=== PATIENT | male | born 1955 | race Caucasian/White ===

== ENCOUNTER 2021-02-05 03:42 | Emergency (ER) | payer MEDICARE, BC ==
[2021-02-05 04:12] VITALS: BP 161/87; PULSE 95
--- NOTE | 2021-02-05 04:20 | EDM.PDOC ---
ED HPI GENERAL MEDICAL PROBLEM - General Chief Complaint: Neurological Problem Stated Complaint: DISORIENTED Time Seen by Provider: 02/05/21 03:58 Source of Information: Reports: Patient, Family History Limitations: Reports: No Limitations - History of Present Illness INITIAL COMMENTS - FREE TEXT/NARRATIVE: Royce is a 65-year-old male from [place], [place] who was camping out at [facility] on [facility] presenting to the ED for evaluation of altered mental status with some confusion, fever, chills, rigors, urinary urgency, frequency, and incontinence, slurring of speech and staggering gait. Patient symptoms started yesterday evening around 9:00. The patient has type 2 diabetes with peripheral neuropathy that is pretty severe so he usually takes Ambien as well as his other medications to be able to sleep. He started having urinary frequency, urgency and incontinence. This was accompanied by the onset of pretty significant chills and rigors. The states that he is ambulating like he is drunk. The patient is slurring his words. He denies any alcohol intake. He has not had any trauma. He denies any new onset of numbness, tingling, or weakness. While in triage to the ED, the patient is flagging for possible sepsis. - Related Data Allergies Allergy/AdvReac Type Severity Reaction Status Date / Time iodine Allergy Hives Verified 02/05/21 03:59 Home Meds: Home Meds Aspirin [Luis Chewable] 81 mg PO DAILY 01/23/15 [History] Furosemide 20 tab PO DAILY 01/23/15 [History] Gabapentin 600 tab PO BID 01/23/15 [History] Insulin Aspart [NovoLOG] 55 unit SUBCUT QID 01/23/15 [History] Lisinopril 2.5 tab PO DAILY 01/23/15 [History] Metoprolol Tartrate [Lopressor] 50 tab PO DAILY 01/23/15 [History] Nitroglycerin [Nitrostat] 0.4 tab SL QID PRN 01/23/15 [History] Omeprazole 20 tab PO DAILY 01/23/15 [History] metFORMIN [Glucophage] 1,000 mg PO BIDMEALS 01/23/15 [History] Baclofen 20 mg PO BID 02/05/21 [History] Clopidogrel [Plavix] 75 mg PO DAILY 02/05/21 [History] Insulin Degludec [Tresiba] 55 units PO BEDTIME 02/05/21 [History] Isosorbide Mononitrate [Isosorbide Mononitrate ER] 120 mg PO DAILY 02/05/21 [History] Past Medical History Other HEENT History: Epistaxis on 01-19-2015, reoccured last night at 2300 Other Genitourinary History: Kidney cancer Social & Family History - Tobacco Use Tobacco Use Status *Q: Never Tobacco User - Recreational Drug Use Recreational Drug Use: No ED ROS GENERAL - Review of Systems Review Of Systems: See Below Constitutional: Reports: Fever, Chills, Malaise, Diaphoresis HEENT: Reports: No Symptoms Respiratory: Reports: No Symptoms Cardiovascular: Reports: No Symptoms Endocrine: Reports: No Symptoms GI/Abdominal: Reports: No Symptoms : Reports: Frequency, Incontinence, Urgency Musculoskeletal: Reports: Leg Pain (Chronic bilateral lower extremity peripheral neuropathy of diabetes) Skin: Reports: No Symptoms Neurological: Reports: Headache Psychiatric: Reports: No Symptoms Hematologic/Lymphatic: Reports: No Symptoms Immunologic: Reports: No Symptoms - Physical Exam Exam: See Below Exam Limited By: No Limitations General Appearance: Alert, Anxious, Mild Distress Eye Exam: Bilateral Eye: EOMI, PERRL Throat/Mouth: Normal Inspection, Normal Lips, Normal Oropharynx, Normal Voice, No Airway Compromise Head Exam: Atraumatic, Normocephalic Neck: Normal Inspection, Supple, Non-Tender, Full Range of Motion. No: Carotid Bruit, Lymphadenopathy (R), Lymphadenopathy (L) Respiratory/Chest: No Respiratory Distress, Lungs Clear, Normal Breath Sounds Cardiovascular: Normal Peripheral Pulses, Regular Rate, Rhythm, No Murmur GI/Abdominal: Normal Bowel Sounds, Soft, Non-Tender Neuro Exam (Abbreviated): Alert, Oriented, CN II-XII Intact, Normal Cognition, No Motor/Sensory Deficits, Other (Mild dysarthria with slurring of the words. Also a mild tremor) Back Exam: CVA Tenderness (L) Extremities: Normal Inspection, No Pedal Edema Psychiatric: Normal Affect, Normal Mood Skin Exam: Warm, Dry, Intact, Normal Color, No Rash Course - Vital Signs Last Recorded V/S: Last Vital Signs Temp 36.7 C 02/05/21 03:58 Pulse 95 02/05/21 03:58 Resp 16 02/05/21 03:58 BP 161/87 H 02/05/21 03:58 Pulse Ox 94 L 02/05/21 03:58 - Orders/Labs/Meds Orders: Active Orders 24 hr Category Date Time Status Head wo Cont [CT] Stat Exams 02/05/21 03:58 Taken cephALEXin [Keflex] Med 02/05/21 05:46 Once 500 mg PO ONETIME ONE Labs: Laboratory Tests 02/05/21 02/05/21 02/05/21 Range/Units 04:10 04:10 04:10 WBC 17.4 H (4.5-11.0) K/uL RBC 5.21 (4.30-5.90) M/uL Hgb 15.3 H (12.0-15.0) g/dL Hct 44.5 (40.0-54.0) % MCV 85 (80-98) fL MCH 29 (27-31) pg MCHC 34 (32-36) % Plt Count 170 (150-400) K/uL Neut % (Auto) 80.1 H (36-66) % Lymph % (Auto) 9.2 L (24-44) % Bracken % (Auto) 10.0 H (2-6) % Eos % (Auto) 0.5 L (2-4) % Baso % (Auto) 0.2 (0-1) % Sodium 136 L (140-148) mmol/L Potassium 4.1 (3.6-5.2) mmol/L Chloride 99 L (100-108) mmol/L Carbon Dioxide 28 (21-32) mmol/L Anion Gap 13.1 (5.0-14.0) mmol/L BUN 13 (7-18) mg/dL Creatinine 1.3 (0.8-1.3) mg/dL Est Cr Clr Drug Dosing 62.32 mL/min Estimated GFR (MDRD) 55 L (>60) Glucose 199 H (74-106) mg/dL Lactic Acid 1.1 (0.4-2.0) mmol/L Calcium 8.7 (8.5-10.1) mg/dL Total Bilirubin 1.1 H (0.2-1.0) mg/dL AST 25 (15-37) U/L ALT 34 (12-78) U/L Alkaline Phosphatase 72 (46-116) U/L Total Protein 7.1 (6.4-8.2) g/dL Albumin 3.6 (3.4-5.0) g/dL Globulin 3.5 (2.3-3.5) g/dL Albumin/Globulin Ratio 1.0 L (1.2-2.2) Urine Color (YELLOW) Urine Appearance (CLEAR) Urine pH (5.0-8.0) Ur Specific [place] (1.008-1.030) Urine Protein (NEGATIVE) mg/dL Urine Glucose (UA) (NEGATIVE) mg/dL Urine Ketones (NEGATIVE) mg/dL Urine Occult Blood (NEGATIVE) Urine Nitrite (NEGATIVE) Urine Bilirubin (NEGATIVE) Urine Urobilinogen (0.2-1.0) EU/dL Ur Leukocyte Esterase (NEGATIVE) Urine RBC (0-5) Urine WBC (0-5) Ur Epithelial Cells Amorphous Sediment Urine Bacteria Urine Mucus Urine Opiates Screen (NEGATIVE) Ur Oxycodone Screen (NEGATIVE) Urine Methadone Screen (NEGATIVE) Ur Propoxyphene Screen (NEGATIVE) Ur Barbiturates Screen (NEGATIVE) Ur Tricyclics Screen (NEGATIVE) Ur Phencyclidine Scrn (NEGATIVE) Ur Amphetamine Screen (NEGATIVE) U Methamphetamines Scrn (NEGATIVE) Urine MDMA Screen (NEGATIVE) U Benzodiazepines Scrn (NEGATIVE) U Cocaine Metab Screen (NEGATIVE) U Marijuana (THC) Screen (NEGATIVE) 02/05/21 02/05/21 Range/Units 04:31 04:31 WBC (4.5-11.0) K/uL RBC (4.30-5.90) M/uL Hgb (12.0-15.0) g/dL Hct (40.0-54.0) % MCV (80-98) fL MCH (27-31) pg MCHC (32-36) % Plt Count (150-400) K/uL Neut % (Auto) (36-66) % Lymph % (Auto) (24-44) % Bracken % (Auto) (2-6) % Eos % (Auto) (2-4) % Baso % (Auto) (0-1) % Sodium (140-148) mmol/L Potassium (3.6-5.2) mmol/L Chloride (100-108) mmol/L Carbon Dioxide (21-32) mmol/L Anion Gap (5.0-14.0) mmol/L BUN (7-18) mg/dL Creatinine (0.8-1.3) mg/dL Est Cr Clr Drug Dosing mL/min Estimated GFR (MDRD) (>60) Glucose (74-106) mg/dL Lactic Acid (0.4-2.0) mmol/L Calcium (8.5-10.1) mg/dL Total Bilirubin (0.2-1.0) mg/dL AST (15-37) U/L ALT (12-78) U/L Alkaline Phosphatase (46-116) U/L Total Protein (6.4-8.2) g/dL Albumin (3.4-5.0) g/dL Globulin (2.3-3.5) g/dL Albumin/Globulin Ratio (1.2-2.2) Urine Color Yellow (YELLOW) Urine Appearance Slightly cloudy A (CLEAR) Urine pH 7.0 (5.0-8.0) Ur Specific [place] 1.015 (1.008-1.030) Urine Protein 30 H (NEGATIVE) mg/dL Urine Glucose (UA) 100 H (NEGATIVE) mg/dL Urine Ketones Negative (NEGATIVE) mg/dL Urine Occult Blood Moderate H (NEGATIVE) Urine Nitrite Positive H (NEGATIVE) Urine Bilirubin Negative (NEGATIVE) Urine Urobilinogen 2.0 H (0.2-1.0) EU/dL Ur Leukocyte Esterase Moderate H (NEGATIVE) Urine RBC 0-5 (0-5) Urine WBC 10-20 H (0-5) Ur Epithelial Cells Few Amorphous Sediment Not seen Urine Bacteria Many Urine Mucus Not seen Urine Opiates Screen Negative (NEGATIVE) Ur Oxycodone Screen Negative (NEGATIVE) Urine Methadone Screen Negative (NEGATIVE) Ur Propoxyphene Screen Negative (NEGATIVE) Ur Barbiturates Screen Negative (NEGATIVE) Ur Tricyclics Screen Presumptive positive H (NEGATIVE) Ur Phencyclidine Scrn Negative (NEGATIVE) Ur Amphetamine Screen Negative (NEGATIVE) U Methamphetamines Scrn Negative (NEGATIVE) Urine MDMA Screen Negative (NEGATIVE) U Benzodiazepines Scrn Negative (NEGATIVE) U Cocaine Metab Screen Negative (NEGATIVE) U Marijuana (THC) Screen Negative (NEGATIVE) - Re-Assessments/Exams Free Text/Narrative Re-Assessment/Exam: 02/05/21 05:50 I reviewed the patient's labs showing a significant leukocytosis of 17.4, hemoglobin of 15.3 with a hematocrit of 44.5 and a platelet count of 170,000. Patient's lactate is 1.1. His comprehensive metabolic panel shows a sodium 136, potassium of 4.1, chloride of 99 with a bicarbonate of 28, BUN of 13 with a creatinine of 1.3 and a glucose of 199. Urinalysis is positive nitrites, positive leukocyte esterase which is large, 10-20 WBCs with 0-5 RBCs. This is consistent with an acute urinary tract infection. Given the patient's symptoms with the left flank pain, this is also likely pyelonephritis. We will put the patient on cephalexin 500 mg 3 times daily for 7 days. A urine culture has been ordered. Patient is returning to [facility] tomorrow and should follow-up with his primary care provider to ensure that he is improving. This is especially important since he is diabetic. Patient is in agreement with the plan and is suitable for discharge in satisfactory condition. Departure - Departure Time of Disposition: 05:47 Disposition: Home, Self-Care 01 Clinical Impression: Urinary tract infection Qualifiers: Urinary tract infection type: acute pyelonephritis Qualified Code(s): N10 - Acute pyelonephritis - Discharge Information Instructions: Urinary Tract Infection, Adult Referrals: PCP,None [Primary Care Provider] - Forms: ED Department Discharge Care Plan Goals: During your work-up today, you are found to have an acute urinary tract infection likely involving the bladder and the kidney. We are going to put you on cephalexin 500 mg 3 times a day for 7 days. This should help clear up the infection. I did put in an order for a urine culture and if this shows resistance to the antibiotic, somebody will contact you to change the antibiotic. Your prescription has been sent out to the [facility] for the 20 additional tablets with the first tablet being given to you in the ER which should complete the full 7-day course. Please make sure to drink plenty of water. Cranberry juice can be helpful because it changes the acidity of your urine making it less favorable for bacteria. Keep an eye on your blood glucose as this will be important indicator of worsening of infection versus improvement. Sepsis Event Note (ED) - Evaluation Sepsis Screening Result: Possible Sepsis Risk - Focused Exam Vital Signs: Vital Signs Temp Pulse Resp BP Pulse Ox 02/05/21 03:58 36.7 C 95 16 161/87 H 94 L - Problem List & Annotations (1) Urinary tract infection SNOMED Code(s): 70268398 Code(s): N39.0 - URINARY TRACT INFECTION, SITE NOT SPECIFIED Status: Acute Priority: Medium Current Visit: Yes Qualifiers: Urinary tract infection type: acute pyelonephritis Qualified Code(s): N10 - Acute pyelonephritis - Problem List Review Problem List Initiated/Reviewed/Updated: Yes - My Orders Last 24 Hours: My Active Orders 02/05/21 03:58 Head wo Cont [CT] Stat 02/05/21 05:46 cephALEXin [Keflex] 500 mg PO ONETIME ONE - Assessment/Plan Last 24 Hours: My Active Orders 02/05/21 03:58 Head wo Cont [CT] Stat 02/05/21 05:46 cephALEXin [Keflex] 500 mg PO ONETIME ONE
[2021-02-05] MEDS ORDERED: Cephalexin 250 MG Cap PO ONE (05:46)
--- NOTE | 2021-02-05 06:12 | CRLCT ---
For Patients: As a result of the Century Cures Act, medical imaging exams and procedure reports are released immediately into your electronic medical record. You may view this report before your referring provider. If you have questions, please contact your health care provider. INDICATION: Tremor, altered level of consciousness. TECHNIQUE: CT head without contrast. COMPARISON: None. FINDINGS: CSF spaces: Within normal limits for age. Brain parenchyma: No intracranial bleed or mass effect. Old lacunar infarct right basal ganglia. Robertson-white differentiation is preserved. Skull base and calvarium: No mucosal thickening in ethmoid sinus opacification. The visualized orbits are grossly unremarkable. No skull fractures. Atherosclerosis. IMPRESSION: 1. No intracranial bleed or mass effect. 2. Old right basal ganglia lacunar infarct. Please note that all CT scans at this facility use dose modulation, iterative reconstruction, and/or weight-based dosing when appropriate to reduce radiation dose to as low as reasonably achievable. Dictated by Jordon Seth MD @ 02/05/2021 6:09:[address] Jordon Seth @ Feb 05 2021 6:09AM
== END 2021-02-05 06:03 | disposition home or self-care (01) ==
LOC: JP.ED 03:42
DX: N10 Acute pyelonephritis (principal); Z91.041 Radiographic dye allergy status; Z79.82 Long term (current) use of aspirin; Z79.899 Other long term (current) drug therapy
CPT/HCPCS: 36415; 70450; 80053; 80305; 81001; 83605; 85025; 87086; 87088; 87186; 99285; A9270

== ENCOUNTER 2024-02-15 13:57 | Emergency (ER) | payer MEDICARE, BC ==
[2024-02-15 15:10] VITALS: BP 132/72; PULSE 81
[2024-02-15] MEDS: Tetracaine HCl/PF 0.5% 4 ML Bottle EYELF ONE (16:37)
== END 2024-02-15 17:19 | disposition home or self-care (01) ==
LOC: JP.ED 13:57
DX: T15.92XA Foreign body on external eye, part unspecified, left eye, initial encounter (principal); I10 Essential (primary) hypertension; I25.10 Atherosclerotic heart disease of native coronary artery without angina pectoris; K21.9 Gastro-esophageal reflux disease without esophagitis; E11.40 Type 2 diabetes mellitus with diabetic neuropathy, unspecified; Z95.1 Presence of aortocoronary bypass graft; Z95.5 Presence of coronary angioplasty implant and graft; Z90.49 Acquired absence of other specified parts of digestive tract; Z79.4 Long term (current) use of insulin; Z79.899 Other long term (current) drug therapy; Z79.82 Long term (current) use of aspirin; Z91.048 Other nonmedicinal substance allergy status; W44.8XXA Other foreign body entering into or through a natural orifice, initial encounter; Y93.H2 Activity, gardening and landscaping
CPT/HCPCS: 99283